=== PATIENT | female | born 1970 | race Caucasian/White ===

== ENCOUNTER 2021-03-04 09:20 | Day surgery (SDC) | payer OTHER | END 2021-03-04 13:30 | disposition home or self-care (01) | LOC: AMB-ENDOS 09:20 | PROVIDERS: ATTEND Surgery | DX: D12.5 Benign neoplasm of sigmoid colon (principal); Z20.822 Contact with and (suspected) exposure to COVID-19 ==

== ENCOUNTER 2023-12-11 05:45 | Day surgery (SDC) | payer OTHER ==
[2023-12-11] MEDS ORDERED: DIPHENHYDRAMINE HCL 50 MG/ML VIAL 1ML IV ONE (11:45)
[2023-12-11] MEDS ORDERED: fentaNYL CITRATE 50 MCG/ML AMPUL IV PUSH ONE (11:45)
[2023-12-11] MEDS ORDERED: MIDAZOLAM HCL 2 MG/2 ML VIAL IV ONE (11:45)
== END 2023-12-11 12:50 | disposition home or self-care (01) ==
LOC: AMB-ENDOS 05:45 → CIR.AMB 13:45
PROVIDERS: ATTEND Surgery
DX: D12.5 Benign neoplasm of sigmoid colon (principal)